=== PATIENT | female | born 1955 | race Two or more races ===

== ENCOUNTER → 2023-12-30 | Outpatient (CLI) | payer MEDICARE | END | disposition home or self-care (01) | LOC: Rad HDHVI 14:58 | PROVIDERS: ATTEND Internal Medicine Cardiovascular Disease | DX: I11.0 Hypertensive heart disease with heart failure (principal); I50.33 Acute on chronic diastolic (congestive) heart failure | CPT/HCPCS: 93306 ==

== ENCOUNTER → 2024-02-10 | Outpatient (CLI) | payer MEDICARE ==
[~2024-02-10] VITALS: Ht 170.2 cm; Wt 67.1 kg
[~2024-02-10] MED LIST: ADENOSINE 56 MG in GIVE UN-DILUTED 0 ML IV ONE; ADENOSINE 90 MG/30 ML INJ IV ONE; NIFEdipine ER 30 MG TAB PO ONE
== END | disposition home or self-care (01) ==
LOC: Rad HDHVI 13:49
PROVIDERS: ATTEND Internal Medicine Cardiovascular Disease
DX: R07.89 Other chest pain (principal); R60.9 Edema, unspecified; E78.00 Pure hypercholesterolemia, unspecified; I11.0 Hypertensive heart disease with heart failure; I50.33 Acute on chronic diastolic (congestive) heart failure; R42 Dizziness and giddiness
CPT/HCPCS: 78452; 93005; 96374; 96375; A9500; J0153

== ENCOUNTER → 2024-03-24 | Outpatient (CLI) | payer MEDICARE ==
[~2024-03-24] MED LIST changes: -ADENOSINE 56 MG in GIVE UN-DILUTED 0 ML IV ONE; -ADENOSINE 90 MG/30 ML INJ IV ONE; +CLON0.1T PO; +CLON0.3D4 PO; -NIFEdipine ER 30 MG TAB PO ONE; +SACU1TAB7 PO
[2024-03-24 13:00] VITALS: BP 216/103; PULSE 97; RESP 18; O2SAT 94
[2024-03-24 13:13] VITALS: BP 216/92; PULSE 74; RESP 18; O2SAT 97
--- NOTE | 2024-03-24 14:34 | DVH ---
EXAM: XY CHEST TWO VIEWS ROUTINE CLINICAL HISTORY: Pain COMPARISON: None TECHNIQUE: Frontal and lateral view of the chest was obtained FINDINGS: Lines and Tubes: None Lungs: No focal consolidation. Pleura: No effusion. No pneumothorax. Cardiomediastinal contours: Unremarkable Bones: No acute osseous abnormality. IMPRESSION: No acute cardiopulmonary disease.
== END | disposition home or self-care (01) ==
LOC: Rad HDHVI 12:44
PROVIDERS: ATTEND Internal Medicine Cardiovascular Disease
DX: Z01.818 Encounter for other preprocedural examination (principal); I10 Essential (primary) hypertension; I25.2 Old myocardial infarction; R07.89 Other chest pain
CPT/HCPCS: 71046; 93005; G0463

== ENCOUNTER 2024-04-16 06:39 | Day surgery (SDC) | payer MEDICARE ==
[2024-03-24 15:32] LABS: Basophils # (auto) 0 10 ^3/uL (0-0.2); Basophils % (auto) 0.5 % (0.0-2.0); Eosinophils # (auto) 0.1 10 ^3/uL (0-0.8); Eosinophils % (auto) 1.5 % (0.0-7.0); Hematocrit 34.7 % (36.0-46.0); Lymphocytes # (auto) 1.6 10 ^3/uL (0.4-5.4); Lymphocytes % (auto) 20.6 % (10.0-50.0); Mean Corpuscular Hemoglobin 32.3 pg (28.0-32.0); Mean Corpuscular Hgb Conc. 34.7 g/dL (32.0-36.0); Monocytes # (auto) 0.7 10 ^3/uL (0-1.3); Monocytes % (auto) 8.6 % (0.0-12.0); Neutrophils # (auto) 5.4 10 ^3/uL (1.6-8.6); Neutrophils % (auto) 68.8 % (37.0-80.0); Platelet Count (auto) 261 10^3/uL (140-450); Red Blood Cells 3.73 10^6/uL (4.0-5.20); Red Cell Distribution Width 13.4 % (11.8-14.3); White Blood Cell 7.8 10^3/uL (4.4-10.8)
[2024-03-24 15:39] LABS: Chloride 103 mmol/L (98-107); Potassium 4.2 mmol/L (3.5-5.1)
[2024-03-24 15:40] LABS: Anion Gap 6 (5-15); Calcium 9.4 mg/dL (8.7-10.4); Carbon Dioxide 27 mmol/L (20-31)
[2024-03-24 15:45] LABS: BUN/Creatinine Ratio 17.9 (10.0-20.0); Blood Urea Nitrogen 14 mg/dL (9-23); Glucose 97 mg/dL (74-106)
[2024-03-24 15:48] LABS: INR 0.92 (0.9-1.15); Partial Thromboplastin Time 29.4 SEC (24.5-34.5); Prothrombin Time 9.8 sec (9.3-11.8)
[2024-03-24 15:52] LABS: Sodium 136 mmol/L (136-145)
[2024-04-13 15:07] LABS: Basophils # (auto) 0 10 ^3/uL (0-0.2); Basophils % (auto) 0.5 % (0.0-2.0); Eosinophils # (auto) 0.1 10 ^3/uL (0-0.8); Eosinophils % (auto) 1.6 % (0.0-7.0); Hematocrit 39.6 % (36.0-46.0); Hemoglobin 13.2 g/dL (12.2-16.2); Lymphocytes # (auto) 2.1 10 ^3/uL (0.4-5.4); Lymphocytes % (auto) 29.1 % (10.0-50.0); Mean Corpuscular Hemoglobin 31.1 pg (28.0-32.0); Mean Corpuscular Hgb Conc. 33.4 g/dL (32.0-36.0); Mean Corpuscular Volume 93.1 fL (80.0-100.0); Monocytes # (auto) 0.5 10 ^3/uL (0-1.3); Monocytes % (auto) 7.1 % (0.0-12.0); Neutrophils # (auto) 4.4 10 ^3/uL (1.6-8.6); Neutrophils % (auto) 61.7 % (37.0-80.0); Platelet Count (auto) 295 10^3/uL (140-450); Red Blood Cells 4.25 10^6/uL (4.0-5.20); Red Cell Distribution Width 13.5 % (11.8-14.3); White Blood Cell 7.2 10^3/uL (4.4-10.8)
[2024-04-13 15:20] LABS: INR 0.94 (0.9-1.15); Partial Thromboplastin Time 27.6 SEC (24.5-34.5)
[2024-04-13 16:06] LABS: Anion Gap 5 (5-15); Carbon Dioxide 29 mmol/L (20-31); Potassium 4.2 mmol/L (3.5-5.1)
[2024-04-13 16:08] LABS: Chloride 98 mmol/L (98-107); Sodium 132 mmol/L (136-145)
[2024-04-13 16:12] LABS: BUN/Creatinine Ratio 18.2 (10.0-20.0); Blood Urea Nitrogen 16 mg/dL (9-23); Glucose 97 mg/dL (74-106)
[2024-04-13 16:14] LABS: HDL Cholesterol 56 mg/dL (40-59)
[2024-04-13 16:16] LABS: Cholesterol 223 mg/dL (< 200); LDL Cholesterol 146 mg/dL (< 100); Triglycerides 207 mg/dL (< 150)
[2024-04-16] VITALS (12 sets, daily range): BP systolic 98–164; BP diastolic 50–77; PULSE 60–71; RESP 12–15; O2SAT 93–96
[~2024-04-16] VITALS: Ht 170.2 cm; Wt 68.0 kg
[2024-04-16] MEDS ORDERED: HEPARIN IN NS 1000Units/500mL 1,500 ML ONE (07:36)
[2024-04-16] MEDS ORDERED: IODIXANOL 320MG/ML 100ML BTL IV ONE ×2 (07:36→09:46)
[2024-04-16] MEDS ORDERED: IOHEXOL 350 MG/ML 100ML IJ ONE (07:37)
[2024-04-16] MEDS ORDERED: ANGIOMAX 250 MG VIAL IV ONE ×2 (07:55→10:00)
[2024-04-16] MEDS ORDERED: HEPARIN SODIUM (PORCINE) 5000 UNITS/ML 1ML VIAL ONE (07:55)
[2024-04-16] MEDS ORDERED: MIDAZOLAM HCL 2MG/2ML 2ml VIAL (1mg/ml) ONE (07:56)
[2024-04-16] MEDS ORDERED: fentaNYL CITRATE 100 MCG/2 ML VL ONE (07:56)
[2024-04-16] MEDS ORDERED: SODIUM CHL 0.9% 0 ML ONE (07:56)
[2024-04-16] MEDS ORDERED: LIDOCAINE 2%HCL (LOCAL ANESTH.) INJ 20ML MDV ONE (07:56)
[2024-04-16] MEDS ORDERED: NITROGLYCERIN 0.4MG/DOSE SPRAY 4.9GM ONE (09:17)
[2024-04-16] MEDS ORDERED: SODIUM CHL 0.9% 50 ML ONE (10:00)
[2024-04-16] MEDS ORDERED: CLOPIDOGREL BISULFATE 75 MG TAB ONE (10:02)
[2024-04-16] MEDS ORDERED: ENALAPRILAT 1.25 MG/ML-1ML VIAL IV ONE (10:12)
[2024-04-16] MEDS ORDERED: cloNIDine HCL 0.1 MG TAB ONE (10:17)
[2024-04-16] MEDS: ACETAMINOPHEN 325 MG TAB PO ONE ×2 (10:45→11:11)
--- NOTE | 2024-04-16 14:02 | DVHHP ---
ADMIT DATE: 04/16/2024 HISTORY OF PRESENT ILLNESS: The patient is 68 years old with history of accelerated hypertension. She also had MS symptoms with severe weakness throughout the body. She is scheduled to undergo a lumbar puncture, but in the event that I did angioplasty or stent placement, then the lumbar puncture will be deferred. The patient has accelerated hypertension. Stress test, however, did not reveal any significant disease. Left ventricular function was also preserved by echocardiography, but she is continuing to have exertional chest pain. Because of the above presentation, it is felt that the patient should undergo coronary angiography and because of the marked elevation in blood pressure despite being on four medications, it is felt renal angiography should be done as well. The risks and benefits were explained to the patient. The patient understands and agrees. REVIEW OF SYSTEMS: The patient denies any fever or chills, melena, hematochezia, hematemesis or hemoptysis. Denies any bleeding diathesis. Denies any history of renal failure. No history of diabetes. No history of any lung disease, but she is having neurological symptoms such as weakness and constant headache and because of that, I believe a lumbar puncture needs to be done. PHYSICAL EXAMINATION: VITAL SIGNS: Blood pressure is 170/84, pulse of 70, O2 saturation 98% on room air, . HEENT: Pupils are equal and reactive. NECK: Supple. Carotid pulses are 2+ symmetrical. PULMONARY: Clear to auscultation. CARDIOVASCULAR: Regular rate without S3, without S4. PMI is not displaced. ABDOMEN: Soft, nontender. Normal bowel sounds. SKIN: Unremarkable. EXTREMITIES: Unremarkable. NEUROLOGIC: The patient is intact. ASSESSMENT AND PLAN: Thus, the patient with accelerated and malignant hypertension, now to undergo renal angiography; chest pain, exertional, now to undergo left heart catheterization. We will make further recommendations after the above tests are completed. Rl Mauro MD SA/SABRA/AMI TID: [id number] RECEIPT: [id number]
--- NOTE | 2024-04-16 14:35 | DVHOP ---
DATE OF SURGERY: 04/16/2024 PROCEDURES PERFORMED: * Selective left and right coronary angiography. * Angioplasty with stent placement in left anterior descending artery. * Conscious sedation. * Ventriculogram. * Thrombectomy with shockwave device of the left anterior descending artery. DESCRIPTION OF PROCEDURE: The patient was prepped and draped in a sterile condition, 1% Xylocaine was used to anesthetize the right groin. Using a Cook needle, the right femoral artery was engaged with Seldinger technique, a 6-Barbadian sheath into the right femoral artery. Using 6-Barbadian JL4 catheter and 6-Barbadian JR4 catheter, selective left and right coronary angiographies were performed. A 6-Barbadian pigtail catheter was used to do the ventriculogram, and the 6-Barbadian diagnostic system was exchanged for a 6-Barbadian interventional system. Using 6-Barbadian XB 3.5 guide catheter, left main was cannulated using a ChoICE PT extra support wire, the LAD lesion was then crossed. It was then balloon angioplastied by using a 2.0 x 15 mm [place] balloon. Following the dilatation, the patient had to have shockwave treatment thrombectomy of the left anterior descending artery with a 2.5 x 12 mm balloon and shockwave atherectomy device. Then, a 3.0 x 15 mm [place] stent was deployed across the lesion at 12 atmospheres. There were no complications. The patient tolerated the procedure well. RESULTS: * Left main, patent. * Left anterior descending artery had a 99% narrowing in the midportion, status post thrombectomy with atherectomy and shockwave and stent placement with a 3.0 x 15 [place] stent with less than 10% residual stenosis. * Circumflex artery, mild intimal irregularity without any flow restrictive lesion. * Right coronary artery is large, dominant vessel without any flow restrictive lesion. * Posterior descending artery of the right coronary artery has an 80% mid lesion that requires intervention at a later date. Left ventricular function was preserved with an estimated EF around 55-60% with an LVEDP of 15 mmHg. The patient with marked hypertension with a blood pressure of 180, requiring multiple doses of nitroglycerin during the course of the procedure. Rl Mauro MD SA/HANSEL/KVNG TID: [id number] RECEIPT: [id number]
--- NOTE | 2024-04-16 15:17 | DVHDS ---
DATE OF DISCHARGE: 04/16/2024 DISCHARGE DIAGNOSES: * The patient who underwent left heart catheterization. Renal angiography. * Angioplasty with stent placement, left anterior descending artery with thrombectomy. * Requires angioplasty of the right renal artery at a later date. * The patient still has residual stenosis in the posterior descending artery that requires intervention at a later date. Stable at the time of discharge. DISPOSITION: Home. ACTIVITY: As instructed. DIET: Will be 2 gram sodium diet, the patient will be maintained on dual platelet therapy. Follow up with me in 1 week. Stable at the time of discharge. Rl Mauro MD SA/SUZETTE TID: [id number] RECEIPT: [id number]
== END 2024-04-16 12:56 | disposition home or self-care (01) ==
LOC: CATH 06:39
PROVIDERS: ATTEND Internal Medicine Cardiovascular Disease
DX: I25.10 Atherosclerotic heart disease of native coronary artery without angina pectoris (principal); I10 Essential (primary) hypertension; R07.89 Other chest pain; R06.02 Shortness of breath; Z88.8 Allergy status to other drugs, medicaments and biological substances; Z79.899 Other long term (current) drug therapy
CPT/HCPCS: 36415; 80048; 80061; 85025; 85610; 85730; 92973; 93458; C1725; C1760; C1769; C1874; C1887; C1894; C9600; J0583; J1644; J2250; J3010; J7030; Q9967; 99152; 99153

== ENCOUNTER → 2024-05-04 | Outpatient (CLI) | payer MEDICARE ==
[~2024-05-04] MED LIST changes: +CLOP75TA28 PO; +PRAV20TA3 PO
[2024-05-04 10:11] VITALS: BP 166/86; PULSE 77; RESP 18; O2SAT 96
[2024-05-04 10:23] VITALS: BP 170/88; PULSE 66; RESP 17; O2SAT 97
--- NOTE | 2024-05-04 11:15 | DVH ---
EXAM: XY CHEST TWO VIEWS ROUTINE CLINICAL HISTORY: PRE OP COMPARISON: XY CHEST TWO VIEWS ROUTINE on DOS: 03/24/24 TECHNIQUE: Frontal and lateral view of the chest was obtained FINDINGS: Lines and Tubes: None Lungs: No focal consolidation. Pleura: No effusion. No pneumothorax. Cardiomediastinal contours: Unremarkable Pulmonary vasculature: Within normal limits. Bones: No acute osseous abnormality. There are chronic healed left rib fractures. IMPRESSION: 1. No acute cardiopulmonary disease. HS:Y
== END | disposition home or self-care (01) ==
LOC: Rad HDHVI 09:57
PROVIDERS: ATTEND Internal Medicine Cardiovascular Disease
DX: Z01.818 Encounter for other preprocedural examination (principal); I65.21 Occlusion and stenosis of right carotid artery
CPT/HCPCS: 71046; 93005; G0463

== ENCOUNTER 2024-05-15 09:38 | Day surgery (SDC) | payer MEDICARE ==
[2024-05-04 12:18] LABS: Basophils # (auto) 0 10 ^3/uL (0-0.2); Basophils % (auto) 0.7 % (0.0-2.0); Eosinophils # (auto) 0.1 10 ^3/uL (0-0.8); Eosinophils % (auto) 1.4 % (0.0-7.0); Hemoglobin 13.1 g/dL (12.2-16.2); Lymphocytes # (auto) 1.7 10 ^3/uL (0.4-5.4); Lymphocytes % (auto) 26.5 % (10.0-50.0); Mean Corpuscular Hgb Conc. 33.5 g/dL (32.0-36.0); Mean Corpuscular Volume 92.5 fL (80.0-100.0); Monocytes # (auto) 0.5 10 ^3/uL (0-1.3); Monocytes % (auto) 7.1 % (0.0-12.0); Neutrophils # (auto) 4.2 10 ^3/uL (1.6-8.6); Neutrophils % (auto) 64.3 % (37.0-80.0); Platelet Count (auto) 305 10^3/uL (140-450); Red Blood Cells 4.22 10^6/uL (4.0-5.20); Red Cell Distribution Width 13.4 % (11.8-14.3); White Blood Cell 6.6 10^3/uL (4.4-10.8)
[2024-05-04 12:42] LABS: INR 0.97 (0.9-1.15); Partial Thromboplastin Time 28.8 SEC (24.5-34.5); Prothrombin Time 10.3 sec (9.3-11.8)
[2024-05-04 12:51] LABS: Chloride 100 mmol/L (98-107); Potassium 4.2 mmol/L (3.5-5.1)
[2024-05-04 12:52] LABS: Anion Gap 7 (5-15); Calcium 9.6 mg/dL (8.7-10.4); Carbon Dioxide 27 mmol/L (20-31)
[2024-05-04 12:56] LABS: Sodium 134 mmol/L (136-145)
[2024-05-04 12:57] LABS: BUN/Creatinine Ratio 16.7 (10.0-20.0); Blood Urea Nitrogen 14 mg/dL (9-23)
[2024-05-04 12:58] LABS: Glucose 106 mg/dL (74-106)
[~2024-05-15] VITALS: Ht 170.2 cm; Wt 70.3 kg
[2024-05-15] VITALS (8 sets, daily range): BP systolic 149–179; BP diastolic 77–102; PULSE 63–97; RESP 12–18; TEMP 97.8; O2SAT 94–98
[~2024-05-15 09:38] MED LIST changes: -PRAV20TA3 PO
[2024-05-15] MEDS ORDERED: IOHEXOL 350 MG/ML 100ML IJ ONE (13:33)
[2024-05-15] MEDS ORDERED: fentaNYL CITRATE 100 MCG/2 ML VL ONE (13:54)
[2024-05-15] MEDS ORDERED: MIDAZOLAM HCL 2MG/2ML 2ml VIAL (1mg/ml) ONE (13:54)
[2024-05-15] MEDS ORDERED: VERAPAMIL 2.5MG/ML INJ 2ML VIAL IV ONE (13:55)
[2024-05-15] MEDS ORDERED: IODIXANOL 320MG/ML 100ML BTL IV ONE (13:56)
[2024-05-15] MEDS ORDERED: LIDOCAINE 2%HCL (LOCAL ANESTH.) INJ 20ML MDV ONE (13:56)
[2024-05-15] MEDS ORDERED: HEPARIN SODIUM (PORCINE) 5000 UNITS/ML 1ML VIAL ONE (14:17)
[2024-05-15] MEDS ORDERED: NITROGLYCERIN 0.4MG/DOSE SPRAY 4.9GM ONE (14:19)
[2024-05-15] MEDS ORDERED: ANGIOMAX 250 MG VIAL IV ONE (14:23)
[2024-05-15] MEDS ORDERED: SODIUM CHL 0.9% 50 ML ONE (14:24)
[2024-05-15] MEDS ORDERED: ATROPINE SULF 1 MG/10ml SYR ONE (14:28)
[2024-05-15] MEDS ORDERED: DOPamine 1600MCG/ML D5W 250 ML IV ONE (14:29)
--- NOTE | 2024-05-15 15:57 | DVHHP2 ---
Admitting Diagnosis: RCA PTCA STENT History of Present Illness The patient is 68 years old with history of accelerated hypertension. She also had MS symptoms with severe weakness throughout the body. She is scheduled to undergo a lumbar puncture, but in the event that I did angioplasty or stent placement, then the lumbar puncture will be deferred. The patient has accelerated hypertension. Stress test, however, did not reveal any significant disease. Left ventricular function was also preserved by echocardiography, but she is continuing to have exertional chest pain. Because of the above presentation, it is felt that the patient should undergo coronary angiography and because of the marked elevation in blood pressure despite being on four medications, it is felt renal angiography should be done as well. The risks and benefits were explained to the patient. The patient understands and agrees. Now to undergo PTCA stent RCA/ PDA Past Medical History REVIEW OF SYSTEMS: The patient denies any fever or chills, melena, hematochezia, hematemesis or hemoptysis. Denies any bleeding diathesis. Denies any history of renal failure. No history of diabetes. No history of any lung disease, but she is having neurological symptoms such as weakness and constant headache and because of that, I believe a lumbar puncture needs to be done. Allergies: Coded Allergies: Hydralazine (Verified Allergy, Unknown, Dropped blood Prassure, 05/04/24) Atenolol (Verified Adverse Reaction, Unknown, "Heart Stopped" Medicated., 05/04/24) Home Meds Reported Medications Clopidogrel Bisulfate (Plavix) 75 Mg Tab, 1 TAB PO DAILY, #90 TAB 1 Refill 05/04/24 Sacubitril-Valsartan (Entresto 49-51 mg) 1 Tab Tab, 1 TAB PO TID, TAB 03/24/24 Clonidine Hydrochloride (Clonidine Hcl) 0.1 Mg Tab, 0.1 MG PO PRN, MG 03/24/24 Clonidine Hydrochloride (Clonidine Hcl) 0.3 Mg/24 Hr Dis, 0.3 MG PO QWEEKLY for HTN/MONDAYS, MG 03/24/24 Physical Exam PHYSICAL EXAMINATION: VITAL SIGNS: Blood pressure is 170/84, pulse of 70, O2 saturation 98% on room air, HEENT: Pupils are equal and reactive. NECK: Supple. Carotid pulses are 2+ symmetrical. PULMONARY: Clear to auscultation. CARDIOVASCULAR: Regular rate without S3, without S4. PMI is not displaced. ABDOMEN: Soft, nontender. Normal bowel sounds. SKIN: Unremarkable. EXTREMITIES: Unremarkable. NEUROLOGIC: The patient is intact. Results Labs Test 05/04/24 12:04 Range/Units White Blood Count 6.6 4.4-10.8 10^3/uL Red Blood Count 4.22 4.0-5.20 10^6/uL Hemoglobin 13.1 12.2-16.2 g/dL Hematocrit 39.0 36.0-46.0 % Mean Corpuscular Volume 92.5 80.0-100.0 fL Mean Corpuscular Hemoglobin 31.0 28.0-32.0 pg Mean Corpuscular Hemoglobin Concent 33.5 32.0-36.0 g/dL Red Cell Distribution Width 13.4 11.8-14.3 % Platelet Count 305 140-450 10^3/uL Mean Platelet Volume 8.3 6.9-10.8 fL Neutrophils (%) (Auto) 64.3 37.0-80.0 % Lymphocytes (%) (Auto) 26.5 10.0-50.0 % Monocytes (%) (Auto) 7.1 0.0-12.0 % Eosinophils (%) (Auto) 1.4 0.0-7.0 % Basophils (%) (Auto) 0.7 0.0-2.0 % Neutrophils # (Auto) 4.2 1.6-8.6 10 ^3/uL Lymphocytes # (Auto) 1.7 0.4-5.4 10 ^3/uL Monocytes # (Auto) 0.5 0-1.3 10 ^3/uL Eosinophils # (Auto) 0.1 0-0.8 10 ^3/uL Basophils # (Auto) 0 0-0.2 10 ^3/uL Nucleated Red Blood Cells 0.0 % Prothrombin Time 10.3 9.3-11.8 sec Prothrombin Time INR 0.97 0.9-1.15 Activated Partial Thromboplast Time 28.8 24.5-34.5 SEC Sodium Level 134 L 136-145 mmol/L Potassium Level 4.2 3.5-5.1 mmol/L Chloride Level 100 98-107 mmol/L Carbon Dioxide Level 27 20-31 mmol/L Anion Gap 7 5-15 Blood Urea Nitrogen 14 9-23 mg/dL Creatinine 0.84 0.550-1.02 mg/dL Glomerular Filtration Rate Calc 75 >90 mL/min BUN/Creatinine Ratio 16.7 10.0-20.0 Serum Glucose 106 74-106 mg/dL Calcium Level 9.6 8.7-10.4 mg/dL Admitting Diagnosis: Pt with rca stenosis pda stenosis Plan PTCA stent RCA PTCA stent PDA Plan discussed with: Patient AAKASH KILLIAN MD May 15, 2024 15:57
--- NOTE | 2024-05-15 16:54 | DVHDS ---
DATE OF DISCHARGE: 05/15/2024 DISCHARGE DIAGNOSES: The patient underwent successful angioplasty, stent placement of the PDA, angioplasty, stent placement of the proximal RCA. HOSPITAL COURSE: The patient's dopamine, we were able to titrate off at this time. Blood pressure is stable, heart rate is now back to above 50. Stable at the time of discharge. DISPOSITION: Home. ACTIVITY: As instructed. DIET: The patient will be maintained on dual antiplatelet therapy. Follow up with me in 1 week. If she develops any chest pain, shortness of breath, PND, orthopnea, palpitation or syncopal episode. The patient is to contact me or come to the Emergency Room. Rl Mauro MD SA/GLADIS TID: [id number] RECEIPT: [id number]
--- NOTE | 2024-05-15 17:23 | DVHOP ---
DATE OF SURGERY: 05/15/2024 PROCEDURES PERFORMED: * Selective left and right coronary angiography. * Angioplasty with thrombectomy shockwave treatment of the mid posterior descending artery with stent placement, 2.5 x 18 mm [place] stent. * FFR of the PDA. * FFR of the proximal RCA. * Angioplasty with stent placement of the proximal RCA with a 4.5 x 15 mm [place] stent with FFR. * Conscious sedation. * Nitroglycerin was given. * The patient received 1 mg of atropine and started on dopamine drip because of hypotension even prior to the initiation of coronary angiography, angioplasty. Procedure was done through right radial artery approach. DESCRIPTION OF PROCEDURE: The patient was prepped and draped in a sterile condition. 1% Xylocaine was used to anesthetize the right radial artery. Using Seldinger technique, a 6-Swedish sheath into the right radial artery. Using a 6-Swedish JR4 guide catheter, we were able to cannulate the RCA, but did not give adequate support, we changed to a DAVISON guide catheter, 6-Swedish, and we were able to get good guide support. Using a ChoICE PT extra support wire, the proximal RCA lesion and the mid PDA lesion were then crossed. The mid PDA lesion was then shockwave thrombectomized using a 2.5 x 12 mm shockwave thrombectomy balloon. Following that, a 2.5 x 18 mm [place] stent was deployed across the lesion. FFR of the PDA using ____ shows an FFR of 0.75. Similar FFR of the proximal RCA showed a lesion of 0.79, second measurement was 0.91, but because inflow was severely restricted, we felt that it is best to do a stent in the RCA. Then, a 4.5 x 15 mm [place] stent was deployed across the proximal lesion at 14 atmospheres. There were no complications. The patient tolerated the procedure well. RESULTS: * Left coronary system was patent as described per previous angiogram. * RCA, PDA had 80-90% narrowing, status post angioplasty with stent placement and thrombectomy with FFR. It was now with a 2.5 x 18 mm [place] stent with less than 10% residual stenosis, 75% narrowing of the proximal RCA, status post angioplasty with stent placement with a 4.5 x 15 mm [place] stent with less than 10% residual stenosis. There were no complications. The patient tolerated the procedure well. We were able to slowly titrate off on the dopamine. We will continue to follow the patient. Rl Mauro MD SA/ELIZ/PATTI TID: [id number] RECEIPT: [id number]
== END 2024-05-15 18:15 | disposition home or self-care (01) ==
LOC: CATH 09:38
PROVIDERS: ATTEND Internal Medicine Cardiovascular Disease
DX: I25.10 Atherosclerotic heart disease of native coronary artery without angina pectoris (principal); I10 Essential (primary) hypertension; Z79.899 Other long term (current) drug therapy; Z95.5 Presence of coronary angioplasty implant and graft; Z79.02 Long term (current) use of antithrombotics/antiplatelets
CPT/HCPCS: 0523T; 36415; 80048; 85025; 85610; 85730; 92972; 92973; 93454; C1725; C1761; C1769; C1874; C1887; C1894; C9600; J0583; J1265; J1644; J2250; J3010; Q9967; 99152; 99153

== ENCOUNTER → 2024-06-12 | Outpatient (CLI) | payer MEDICARE | END | disposition home or self-care (01) | LOC: Rad HDHVI 09:37 | PROVIDERS: ATTEND Internal Medicine Cardiovascular Disease | DX: I10 Essential (primary) hypertension (principal); R07.9 Chest pain, unspecified | CPT/HCPCS: 93306 ==

== ENCOUNTER → 2024-06-15 | Outpatient (CLI) | payer MEDICARE ==
[~2024-06-15] VITALS: Ht 170.2 cm; Wt 68.0 kg
--- NOTE | 2024-06-19 12:54 | DVHSR ---
APPROVED REPORT Exam: Nuclear Stress Test Indication: CAD s/p PCI, Chest pain Ht: 5 ft 8 in Wt: 150 lbs BSA: 1.81 m2 HR: 60 bpm BP: 147/82 mmHg BMI: 22.80 Rhythm: Bradycardia Medical History Medical History: Stent, HTN, Hypercholesterolemia, CHF Medications: Clonidine patch, Clonidine, Entresto, Plavix Allergies: No known drug allergies Stress Test Details Stress Test: Exercise stress testing was performed using a Daniel protocol. HR Resting HR: 60 bpmMax Heart Rate (APMHR): 150.511556 bpm Max HR Achieved: 146 bpmTarget HR (85% APMHR): 127.419931 bpm % of APMHR: 97.33 Recovery HR: 66 bpm HR response to stress: Accelerated BP Resting BP: 147/82 mmHg Max BP: 196/69 mmHg Recovery BP: 137/70 mmHg BP response to stress: Exaggerated response ECG Resting ECG: Sinus Bradycardia Stress ECG: Sinus Tachycardia Arrhythmia: PACs Recovery ECG: Sinus Rhythm Clinical Reason for Termination: Target HR achieved Stress Symptoms: Mild dizziness Exercise duration: 3 min sec Exercise capacity: 4.6 METs Dizziness resolved during recovery. Stress ECG Conclusion NON ISCHEMIC CLINICAL RESPONSE NON ISCHEMIC ECG RESPONSE NO PERFUSION DEFECT NOTED DURING STRESS CARDIOLITE EF >55% LESS THAN 10% LIKELIHOOD FOR STRESS INDUCED ISCHEMIA NM EXAM: Myocardial Perfusion REST/STRESS Imaging Protocol: Rest Tc-99m/Stress Tc-99m 1 day Resting Data Rest SPECT myocardial perfusion imaging was performed in supine position 30 minutes following the int ravenous injection of 10.81 mCi of Tc-99m Sestamibi. Time of rest injection: 1015 Date: 06/15/2024 Time of rest imagin Date: 06/15/2024 Administration Route: IV Administration Site: Left AC Exercise Stress At peak stress, the patient was injected intravenously with 29.2 mCi of Tc-99m Sestamibi. Time of stress injection: 1225 Date: 06/15/2024 Time of stress imagin Date: 06/15/2024 Administration Route: IV Administration Site: Left AC Heart Rate at time of stress injection: 141 bpm. Patient continued to exercise for 1.5 minute(s). Gated Stress SPECT was performed 15 minutes after stress injection. The images were gated to evaluate regional wall motion and calculate left ventricular ejection fracti on. Comments Cardiolite injeciton at 1 minute, 19 seconds into test. Study Data Post stress, the left ventricular ejection was >55%.. Nuclear Conclusion NON ISCHEMIC CLINICAL RESPONSE NON ISCHEMIC ECG RESPONSE NO PERFUSION DEFECT NOTED DURING STRESS CARDIOLITE EF >55% LESS THAN 10% LIKELIHOOD FOR STRESS INDUCED ISCHEMIA
== END | disposition home or self-care (01) ==
LOC: Rad HDHVI 09:44
PROVIDERS: ATTEND Internal Medicine Cardiovascular Disease
DX: I49.1 Atrial premature depolarization (principal); R00.0 Tachycardia, unspecified; R00.1 Bradycardia, unspecified; R07.9 Chest pain, unspecified; I11.0 Hypertensive heart disease with heart failure; I50.33 Acute on chronic diastolic (congestive) heart failure; I25.10 Atherosclerotic heart disease of native coronary artery without angina pectoris; I05.0 Rheumatic mitral stenosis; E78.00 Pure hypercholesterolemia, unspecified; Z95.5 Presence of coronary angioplasty implant and graft
CPT/HCPCS: 78452; 93017; A9500; 96374

== ENCOUNTER → 2024-06-22 | Outpatient (CLI) | payer MEDICARE ==
[2024-06-22 08:50] VITALS: BP 188/91; PULSE 65; RESP 16; O2SAT 97
[2024-06-22 09:12] VITALS: BP 191/93; PULSE 62; RESP 16; O2SAT 97
--- NOTE | 2024-06-22 12:10 | DVH ---
XY CHEST TWO VIEWS ROUTINE, HISTORY: PRE OP COMPARISON: XY CHEST TWO VIEWS ROUTINE on DOS: 05/04/24, XY CHEST TWO VIEWS ROUTINE on DOS: 03/24/24 XY CHEST TWO VIEWS ROUTINE on DOS: 05/04/24, XY CHEST TWO VIEWS ROUTINE on DOS: 03/24/24 TECHNICAL DATA: 2 view of the chest was obtained. FINDINGS: Lines and tubes: None Cardiomediastinal silhouette: normal Pulmonary vasculature: normal Lung expansion: normal Lung airspace: normal Lung interstitium: normal Pleura: normal Pneumothorax: no Bones: Unremarkable Other: no IMPRESSION: No acute intrathoracic abnormality.
== END | disposition home or self-care (01) ==
LOC: Rad HDHVI 08:42
PROVIDERS: ATTEND Internal Medicine Cardiovascular Disease
DX: Z01.818 Encounter for other preprocedural examination (principal); R94.31 Abnormal electrocardiogram [ECG] [EKG]; I70.1 Atherosclerosis of renal artery
CPT/HCPCS: 71046; 93005; G0463

== ENCOUNTER 2024-06-25 06:18 | Day surgery (SDC) | payer MEDICARE ==
[2024-06-22 12:14] LABS: Basophils # (auto) 0 10 ^3/uL (0-0.2); Basophils % (auto) 0.6 % (0.0-2.0); Eosinophils # (auto) 0.1 10 ^3/uL (0-0.8); Eosinophils % (auto) 1.4 % (0.0-7.0); Hematocrit 37.8 % (36.0-46.0); Hemoglobin 12.8 g/dL (12.2-16.2); Lymphocytes # (auto) 1.6 10 ^3/uL (0.4-5.4); Lymphocytes % (auto) 27.1 % (10.0-50.0); Mean Corpuscular Hemoglobin 31.6 pg (28.0-32.0); Mean Corpuscular Hgb Conc. 33.8 g/dL (32.0-36.0); Mean Corpuscular Volume 93.4 fL (80.0-100.0); Monocytes # (auto) 0.4 10 ^3/uL (0-1.3); Neutrophils # (auto) 3.8 10 ^3/uL (1.6-8.6); Neutrophils % (auto) 63.9 % (37.0-80.0); Platelet Count (auto) 258 10^3/uL (140-450); Red Blood Cells 4.05 10^6/uL (4.0-5.20)
[2024-06-22 12:24] LABS: Chloride 100 mmol/L (98-107); Potassium 4.1 mmol/L (3.5-5.1)
[2024-06-22 12:25] LABS: INR 0.95 (0.9-1.15); Partial Thromboplastin Time 28.2 SEC (24.5-34.5); Prothrombin Time 10.1 sec (9.3-11.8)
[2024-06-22 12:26] LABS: Anion Gap 7 (5-15); Calcium 9.9 mg/dL (8.7-10.4); Carbon Dioxide 27 mmol/L (20-31)
[2024-06-22 12:30] LABS: BUN/Creatinine Ratio 18.4 (10.0-20.0); Blood Urea Nitrogen 14 mg/dL (9-23); Glucose 101 mg/dL (74-106)
[2024-06-22 12:38] LABS: Sodium 134 mmol/L (136-145)
[~2024-06-25] VITALS: Ht 170.2 cm; Wt 69.9 kg
[2024-06-25] VITALS (8 sets, daily range): BP systolic 89–159; BP diastolic 46–83; PULSE 47–63; RESP 12–18; O2SAT 94–98
[2024-06-25] MEDS: IODIXANOL 320MG/ML 100ML BTL IV ONE (07:23)
[2024-06-25] MEDS: HEPARIN IN NS 1000Units/500mL 1,500 ML ONE (07:23)
[2024-06-25] MEDS: ANGIOMAX 250 MG VIAL IV ONE (08:08)
[2024-06-25] MEDS: fentaNYL CITRATE 100 MCG/2 ML VL ONE (08:08)
[2024-06-25] MEDS: SODIUM CHL 0.9% 50 ML ONE (08:08)
[2024-06-25] MEDS: MIDAZOLAM HCL 2MG/2ML 2ml VIAL (1mg/ml) ONE (08:08)
[2024-06-25] MEDS: LIDOCAINE 2%HCL (LOCAL ANESTH.) INJ 20ML MDV ONE (08:08)
[2024-06-25] MEDS: NITROGLYCERIN 0.4MG/DOSE SPRAY 4.9GM ONE (08:18)
[2024-06-25] MEDS: ATROPINE SULF 1 MG/10ml SYR ONE (08:47)
--- NOTE | 2024-06-25 09:16 | DVHDS ---
DATE OF DISCHARGE: 06/25/2024 DISCHARGE DIAGNOSES: The patient with accelerated malignant hypertension status post angioplasty, thrombectomy and stent placement of the right renal artery with a 6 mm x 18 mm Express stent, now with less than 10% residual stenosis. HOSPITAL COURSE: The patient's blood pressure corrected very rapidly because of the size of the artery that was narrowed and the patient now requires fewer medications and lower doses of antihypertensive agents. We will titrate if necessary. I will see her in about a week and I will make further recommendations. Stable at the time of discharge. DISPOSITION: Home. ACTIVITY: As instructed. DIET: A 2 g sodium diet. Rl Mauro MD SA/JASE TID: [id number] RECEIPT: [id number]
--- NOTE | 2024-06-25 09:28 | DVHOP ---
DATE OF SURGERY: 06/25/2024 PROCEDURES PERFORMED: * Abdominal aortography. * Selective left and right renal angiography. * Thrombectomy of the right renal artery with shockwave catheter. * Angioplasty with stent placement of the right renal artery with a 6 mm x 18 mm [place] stent deployed at 14 atmospheres. * The patient also had conscious sedation. DESCRIPTION OF PROCEDURE: The patient was prepped and draped in a sterile condition and 1% Xylocaine was used to anesthetize the right groin. Using a Cook needle, right femoral artery was engaged with Seldinger technique, a 6-Uzbek sheath was introduced in the right femoral artery. Using a 6-Uzbek C2 guide catheter, selective left and right renal angiography was performed. Then, using the C1 guide catheter, we were able to cannulate the right renal artery. Initially, I attempted to cross the lesion with a gold wire, but we were unable to. Then, using a Choice PT extra support wire with a proper curvature, we were able to advance and cannulate the right renal artery. It was then thrombectomized and shock-wave treatment was given. A 4 x 12 mm coronary shock wave was used. Following that, a 6 x 18 mm [place] stent was deployed across the lesion at 14 atmospheres. There were no complications. The patient tolerated the procedure well. RESULTS: * Abdominal aortography showed a patent iliac, patent superior mesenteric and inferior mesenteric artery. * Patent left renal artery without any flow restrictive lesion. * Left renal artery, however, had a significant stenosis of greater than 90% ostial lesion, status post angioplasty with stent placement and thrombectomy with a shock-wave device with a 6 x 18 mm [place] stent with less than 10% residual stenosis. We need to monitor the patient for bradycardia as well as for sudden drop in blood pressure because this is a large caliber vessel and had a high-grade narrowing. I believe revascularizing the renal artery would correct the patient's blood pressure problem. The patient underwent successful angioplasty with stent placement of the right renal artery as described above. Rl Mauro MD SA/HANSEL TID: [id number] RECEIPT: [id number]
== END 2024-06-25 11:20 | disposition home or self-care (01) ==
LOC: CATH 06:18
PROVIDERS: ATTEND Internal Medicine Cardiovascular Disease
DX: I70.1 Atherosclerosis of renal artery (principal); R79.1 Abnormal coagulation profile; I10 Essential (primary) hypertension; Z79.899 Other long term (current) drug therapy; Z88.8 Allergy status to other drugs, medicaments and biological substances
CPT/HCPCS: 36252; 36415; 37186; 37236; 80048; 85025; 85610; 85730; C1725; C1760; C1876; C1887; C1894; J0583; J1644; J2250; J3010; Q9967; 99152; 99153

== ENCOUNTER 2024-07-22 12:08 | Outpatient (CLI) | payer MEDICARE | END 2024-07-22 17:00 | disposition home or self-care (01) | LOC: Rad HDHVI 12:08 | PROVIDERS: ATTEND Internal Medicine Cardiovascular Disease | DX: I11.0 Hypertensive heart disease with heart failure (principal); I50.33 Acute on chronic diastolic (congestive) heart failure | CPT/HCPCS: 93880 ==